=== PATIENT | male | born 1935 | race Caucasian/White ===

== ENCOUNTER 2017-04-15 22:07 | Emergency (ER) | payer OTHER ==
[~2017-04-15] VITALS: Ht 172.7 cm; Wt 83.0 kg
[2017-04-15 22:07] VITALS: BP_SYST 158
[2017-04-15] MEDS ORDERED: NACL 0.9% 1,000 ML IV ONE (23:03)
[2017-04-15 23:33] LABS: BASOPHILS # (AUTO) 0.3 K/uL (0.0-0.2); EOSINOPHILS % (AUTO) 0.3 % (0.0-4.0); HEMATOCRIT 42.8 % (36-54); HEMOGLOBIN 14.1 g/dL (14.0-18.0); LYMPHOCYTES # (AUTO) 0.9 K/uL (1.0-5.5); LYMPHOCYTES % (AUTO) 6.3 % (20.5-51.5); MEAN CORPUSCULAR HEMOGLOBIN 30 pg (27-31); MEAN CORPUSCULAR HGB CONC 33 % (32-36); MEAN CORPUSCULAR VOLUME 92 fL (79.0-98.0); MONOCYTES # (AUTO) 0.9 K/uL (0.0-1.0); MONOCYTES % (AUTO) 6.7 % (1.7-9.3); NEUTROPHILS # (AUTO) 11.5 K/uL (1.8-7.7); NEUTROPHILS % (AUTO) 84.7 % (40.0-70.0); PLATELET COUNT (AUTO) 264 K/uL (130-430); RED BLOOD CELL COUNT(AUTO) 4.64 MIL/uL (4.2-6.2); RED CELL DISTRIBUTION WIDTH 13.1 % (9.0-15.0); WHITE BLOOD COUNT (AUTO) 13.6 K/uL (4.8-10.8)
[2017-04-15 23:34] LABS: ANION GAP 12 (5-15); CALCIUM 9.5 mg/dL (8.4-11.0); CHLORIDE 108 mmol/L (98-107); CREATININE 1.48 mg/dL (0.55-1.30); GLUCOSE 133 mg/dL (70-99); POTASSIUM 4.1 mmol/L (3.5-5.1); SODIUM SERUM 145 mmol/L (136-145); UREA NITROGEN, BLOOD 26 mg/dL (8-21)
[2017-04-15 23:46] LABS: ALANINE AMINOTRANSFERASE 39 U/L (12-78); ALBUMIN 3.7 g/dL (3.4-4.8); ASPARTATE AMINOTRANSFERASE 26 U/L (10-37); TOTAL BILIRUBIN 0.1 mg/dL (0.0-1.0)
[2017-04-16] MEDS ORDERED: cloNIDine HCL 0.1 MG TABLET PO ONE (01:00)
[2017-04-16 01:58] VITALS: BP_SYST 159
[2017-04-16] MEDS ORDERED: BISA5TAB10 PO (13:17)
[2017-04-16] MEDS ORDERED: ONDA4TAB5 PO (13:17)
[2017-04-16] MEDS ORDERED: SENN8.8S13 PO (13:17)
[2017-04-16] MEDS ORDERED: METO25TA6 PO (13:17)
[2017-04-16] MEDS ORDERED: ACET-2165 PO (13:17)
[2017-04-16] MEDS ORDERED: DOCU250C PO (13:17)
[2017-04-16] MEDS ORDERED: APIX5TAB PO (13:17)
[2017-04-16] MEDS ORDERED: MAGN400O4 PO (13:17)
[2017-04-16] MEDS ORDERED: LIP80 PO (13:17)
[2017-04-16] MEDS ORDERED: IPRA4AER INH (13:17)
== END 2017-04-16 01:58 | disposition home or self-care (01) ==
LOC: SED 22:07
DX: R53.1 Weakness (principal); I10 Essential (primary) hypertension; R06.02 Shortness of breath; F03.90 Unspecified dementia, unspecified severity, without behavioral disturbance, psychotic disturbance, mood disturbance, and anxiety; Z86.73 Personal history of transient ischemic attack (TIA), and cerebral infarction without residual deficits
CPT/HCPCS: 36415; 71010; 80053; 84484; 85025; 96360; 96361; 99285; J7030

== ENCOUNTER 2017-04-16 10:59 | Emergency (ER) | payer OTHER ==
[~2017-04-16] VITALS: Ht 185.4 cm; Wt 77.1 kg
[2017-04-16 11:01] VITALS: BP_SYST 151
[2017-04-16 12:44] LABS: BASOPHILS % (AUTO) 0.2 % (0.0-2.0); EOSINOPHILS % (AUTO) 0.4 % (0.0-4.0); HEMATOCRIT 42.7 % (36-54); LYMPHOCYTES # (AUTO) 1.2 K/uL (1.0-5.5); LYMPHOCYTES % (AUTO) 10.6 % (20.5-51.5); MEAN CORPUSCULAR HEMOGLOBIN 30 pg (27-31); MEAN CORPUSCULAR HGB CONC 33 % (32-36); MEAN CORPUSCULAR VOLUME 92 fL (79.0-98.0); MONOCYTES # (AUTO) 0.7 K/uL (0.0-1.0); MONOCYTES % (AUTO) 6.7 % (1.7-9.3); NEUTROPHILS # (AUTO) 9.2 K/uL (1.8-7.7); NEUTROPHILS % (AUTO) 82.1 % (40.0-70.0); PLATELET COUNT (AUTO) 244 K/uL (130-430); RED BLOOD CELL COUNT(AUTO) 4.64 MIL/uL (4.2-6.2); RED CELL DISTRIBUTION WIDTH 13.1 % (9.0-15.0); WHITE BLOOD COUNT (AUTO) 11.1 K/uL (4.8-10.8)
[2017-04-16 12:59] LABS: PROTHROMBIN TIME 10.6 SECS (9.5-12.5)
[2017-04-16 13:00] LABS: ANION GAP 6 (5-15); CALCIUM 9.2 mg/dL (8.4-11.0); CHLORIDE 109 mmol/L (98-107); CREATININE 1.13 mg/dL (0.55-1.30); GLUCOSE 138 mg/dL (70-99); POTASSIUM 3.9 mmol/L (3.5-5.1); SODIUM SERUM 142 mmol/L (136-145); UREA NITROGEN, BLOOD 20 mg/dL (8-21)
[2017-04-16 13:04] LABS: ALANINE AMINOTRANSFERASE 36 U/L (12-78); ALBUMIN 3.5 g/dL (3.4-4.8); ASPARTATE AMINOTRANSFERASE 27 U/L (10-37); TOTAL BILIRUBIN 0.2 mg/dL (0.0-1.0)
[2017-04-16 13:06] LABS: ALCOHOL, BLOOD < 3 mg/dL (<10)
[2017-04-16 13:14] LABS: BILIRUBIN,URINE NEGATIVE (NEGATIVE); BLOOD, URINE NEGATIVE (NEGATIVE); CLARITY/URINE CLEAR (CLEAR); COLOR,URINE YELLOW (YELLOW); GLUCOSE,URINE NEGATIVE (NEGATIVE); KETONES,URINE NEGATIVE (NEGATIVE); LEUKOCYTE ESTERASE ,URINE NEGATIVE (NEGATIVE); NITRITE, URINE NEGATIVE (NEGATIVE); PH,URINE 5.5 (5.0-8.0); PROTEIN URINE NEGATIVE (NEGATIVE); UROBILINOGEN,URINE 0.2 (0.2-1.0)
[2017-04-16] MEDS ORDERED: ACET-2165 PO (13:17)
[2017-04-16] MEDS ORDERED: METO25TA6 PO (13:17)
[2017-04-16] MEDS ORDERED: APIX5TAB PO (13:17)
[2017-04-16] MEDS ORDERED: LIP80 PO (13:17)
[2017-04-16] MEDS ORDERED: IPRA4AER INH (13:17)
[2017-04-16] MEDS ORDERED: SENN8.8S13 PO (13:17)
[2017-04-16] MEDS ORDERED: ONDA4TAB5 PO (13:17)
[2017-04-16] MEDS ORDERED: MAGN400O4 PO (13:17)
[2017-04-16] MEDS ORDERED: BISA5TAB10 PO (13:17)
[2017-04-16] MEDS ORDERED: DOCU250C PO (13:17)
[2017-04-16] MEDS ORDERED: cloNIDine HCL 0.1 MG TABLET PO ONE (13:30)
[2017-04-16 13:47] LABS: BARBITURATE, URINE NEGATIVE (NEG <=200); BENZODIAZEPINE, URINE NEGATIVE (NEG <=150); CANNABINOID, URINE NEGATIVE (NEG <=50); COCAINE, URINE NEGATIVE (NEG <=150); METHAMPHETAMINES SCREEN,URINE NEGATIVE (NEG <=500); OPIATE, URINE NEGATIVE (NEG <=100); PHENCYCLIDINE SCREEN,URINE NEGATIVE (NEG <=25); UR TRICYCLIC ANTIDEPRESSANTS NEGATIVE (NEG <=300); URINE AMPHETAMINE NEGATIVE (NEG <=500); URINE METHADONE NEGATIVE (NEG <=200); URINE OXYCODONE SCREEN NEGATIVE (NEG <=100); URINE PROPOXYPHENE SCREEN NEGATIVE (NEG <=300)
[2017-04-16 14:27] VITALS: BP_SYST 173
== END 2017-04-16 14:27 | disposition home or self-care (01) ==
LOC: SED 10:59
DX: S46.911A Strain of unspecified muscle, fascia and tendon at shoulder and upper arm level, right arm, initial encounter (principal); S39.012A Strain of muscle, fascia and tendon of lower back, initial encounter; S70.01XA Contusion of right hip, initial encounter; I10 Essential (primary) hypertension; F03.90 Unspecified dementia, unspecified severity, without behavioral disturbance, psychotic disturbance, mood disturbance, and anxiety; I69.354 Hemiplegia and hemiparesis following cerebral infarction affecting left non-dominant side; W19.XXXA Unspecified fall, initial encounter; Y93.89 Activity, other specified; Y92.091 Bathroom in other non-institutional residence as the place of occurrence of the external cause; Y99.8 Other external cause status
CPT/HCPCS: 36415; 70450; 71010; 72100; 73030; 73502; 74000; 80053; 80307; 81003; 82140; 83605; 83880; 84439; 84484; 85025; 85610; 87040; 93005; 99285; G0482